=== PATIENT | male | born 1980 | race Two or more races ===

== ENCOUNTER 2020-02-08 08:46 | Emergency (ER) | payer OTHER ==
[~2020-02-08] VITALS: Ht 172.7 cm; Wt 103.3 kg
[2020-02-08 08:48] VITALS: BP 116/80
[2020-02-08] MEDS ORDERED: OXYcodone/APAP 5/325MG TABLET PO ONE (09:30)
[2020-02-08] MEDS ORDERED: KETOROLAC 30 MG/1 ML IM ONE (09:30)
--- NOTE | 2020-02-08 09:42 | NUR ---
Attempted to discharge Pt, Pt not in room. Was not medicated, PA aware.
== END 2020-02-08 09:44 | disposition left against medical advice (07) ==
LOC: ED 09:17
DX: G56.03 Carpal tunnel syndrome, bilateral upper limbs (principal); M25.532 Pain in left wrist; M25.531 Pain in right wrist
CPT/HCPCS: 99282